=== PATIENT | female | born 1975 | race Caucasian/White ===

== ENCOUNTER 2025-05-30 10:27 | Outpatient (CLI) | payer OTHER, SELFPAY ==
--- NOTE | 2025-05-30 10:20 | MM_ITS ---
WS: [id number] BILATERAL 3D TOMOSYNTHESIS DIGITAL SCREENING MAMMOGRAPHY WITH CAD CLINICAL INFORMATION: SCREENING HISTORY: Screening mammogram. No current complaints. COMPARISON: 2019 and 2018 TECHNIQUE: Bilateral CC and MLO views. FINDINGS: The breasts are composed of heterogeneous fibroglandular density tissue, which can limit the detection of small underlying mass lesions. 11 mm ovoid nodule subareolar RIGHT breast appears new from previous. Recommend further evaluation with ultrasound. Partially obscured ovoid nodule 11:00 LEFT breast posterior depth was previously demonstrated to represent a cyst in the prior outside ultrasound. Incidental punctate calcifications. MM/MM [facility] tomosynthesis [id number] IMPRESSION: DENSITY: The breasts are heterogeneously dense, which may obscure small masses. BI-RADS: 0 - Incomplete: Need additional imaging evaluation FOLLOW UP: Need Additional Imaging Recommend subareolar RIGHT breast ultrasound in further evaluation.
== END 2025-05-30 10:28 | disposition home or self-care (01) ==
LOC: MOBLMAM 10:31
PROVIDERS: PCP Nurse Practitioner Primary Care; Visit Provider Nurse Practitioner Primary Care
DX: Z12.31 Encounter for screening mammogram for malignant neoplasm of breast (principal); R92.323 Mammographic fibroglandular density, bilateral breasts; R92.333 Mammographic heterogeneous density, bilateral breasts; N63.11 Unspecified lump in the right breast, upper outer quadrant; N63.22 Unspecified lump in the left breast, upper inner quadrant; N63.41 Unspecified lump in right breast, subareolar
CPT/HCPCS: 77063; 77067